=== PATIENT | male | born 1940 | race Caucasian/White ===

== ENCOUNTER 2016-10-02 10:37 | Emergency (ER) | payer OTHER ==
[~2016-10-02 10:37] MED LIST: ALEVE220 MG PO; ASAB PO; ASABAYER PO; ATV.5 PO; BETAMETH DIP0.05 % TOP; CALTRA600D PO; CELEBREX2 PO; CELEXA20 PO; CENTRUM PO; CORDARONE PO; COZ50 PO; DEXEDRINE15 MG OR; DEXEDRINE15 MG PO; FERROUS SULF325 M1 PO; FISH OIL1200 MG PO; FISH-EPA1000 MG PO; FLOMAX4 PO; GARLIC PO; GLUCCHONDR PO; L20 PO; L40 PO; LIPITOR80 MG PO; LUTEIN20 MG PO; MELA3 PO; MELATONIN5 M1 PO; MULTIVIT/MIN PO; MULTIVITAMI1 PO; PRIN2.5 PO; PROTONIX PO; SAW PALMETT1 PO; SAW PALMETT2 PO; TOPXL25 PO; VITC500 PO; ZAROX2.5B PO; ZOCOR40 PO
[2016-10-02 11:14] LABS: BASOPHILS 0.3 %; BASOPHILS ABSOLUTE 0.01 10/3/uL (0.0-0.16); EOSINOPHILS 1.8 %; EOSINOPHILS ABSOLUTE 0.07 10/3/uL (0.0-0.53); HEMATOCRIT 44.6 % (40.0-51.0); IMMATURE GRANULOCYTES 0.3 %; IMMATURE GRANULOCYTES ABSOLUTE 0.01 10/3/uL (0.0-0.11); LYMPHOCYTES 26.9 %; LYMPHOCYTES ABSOLUTE 1.04 10/3/uL (0.67-4.30); MEAN CORPUS HGB CONC 33.6 g/dL (32.0-36.0); MEAN CORPUSCULAR HEMOGLOB 29.1 pg (26.0-34.0); MEAN PLATELET VOLUME 10.8 fL (9.2-13.0); MONOCYTES 9.3 %; MONOCYTES ABSOLUTE 0.36 10/3/uL (0.21-1.20); NEUTROPHILS 61.4 %; NEUTROPHILS ABSOLUTE 2.38 10/3/uL (2.02-8.40); PLATELET COUNT 67 10/3/uL (150-400); RBC DISTRIBUTION WIDTH 14.4 % (12.0-16.0); RED CELL COUNT 5.15 10/6/uL (4.7-6.1); WHITE BLOOD CELLS 3.9 10/3/uL (4.5-10.5)
[2016-10-02 11:15] LABS: MANUAL DIFF NO %; MEAN CORPUSCULAR VOLUME 86.6 fL (80-100)
[2016-10-02 11:22] LABS: PARTIAL THROMBO TIME 36.3 SEC (22.5-37.2)
[2016-10-02 11:23] LABS: INTERNATIONAL NORMAL RATI 1.1 UNITS (-); PROTIME (NOT ORD) 13.8 SEC (12.0-14.5)
[2016-10-02 11:32] LABS: BUN (BLOOD UREA NITROGEN) 14 MG/DL (6-23); CALCIUM, SERUM 8.9 MG/DL (8.5-10.4); CHEST PAIN PROFILE TAT 0 Hrs 22 Mins; CHLORIDE, SERUM 102 MMOL/L (96-112); CO2 (CARBON DIOXIDE) 31 MMOL/L (24-34); CREATININE 1.08 MG/DL (0.70-1.30); GFR AFRICAN AMERICAN 76 ML/MIN (>=60); GFR NON AFRICAN AMERICAN 65 ML/MIN (>=60); GLUCOSE, SERUM 179 MG/DL (60-99); POTASSIUM, SERUM 3.9 MMOL/L (3.5-5.3); SODIUM, SERUM 137 MMOL/L (135-148); TROPONIN I <0.02 NG/ML (<0.05)
[2016-10-02 11:39] LABS: PLATELET ESTIMATE DEC (ADEQUATE); RBC MORPHOLOGY NORM (NORMAL)
== END 2016-10-02 16:09 | disposition home or self-care (01) ==
LOC: ER 10:37
PROVIDERS: Emergency Medicine
DX: I47.1 Supraventricular tachycardia (principal); I95.9 Hypotension, unspecified; I25.2 Old myocardial infarction; I50.9 Heart failure, unspecified; Z87.891 Personal history of nicotine dependence; Z79.82 Long term (current) use of aspirin; Z79.899 Other long term (current) drug therapy
CPT/HCPCS: 71010; 80048; 83735; 84484; 85025; 85610; 85730; 93005; 96365; 99285; J0282

== ENCOUNTER 2016-11-12 12:57 | Inpatient (IN) | payer OTHER ==
--- NOTE | ~2016-11-12 | HP ---
History And Physical [address] [place]. [address] NAME: LYNN THAKUR : 36 STATUS : ADM IN [facility]#: [id number] AGE: 76 ADM/REG DATE : 11/12/16 MR#: [id number] REPORT SERV DATE: 11/12/16 DICTATED BY: JULES MACHADO DATE: 11/12/16 REPORT STATUS : Draft TRANSCRIBED BY: IMANI DATE: 11/12/16 DATE OF ADMISSION: 11/12/2016 ADMISSION DIAGNOSIS: Atrial tachycardia. HISTORY OF PRESENT ILLNESS: Mr. Thakur is a 76-year-old male, who presented to [facility] ED for evaluation of dizziness. He has a cardiac history notable for nonischemic cardiomyopathy with prior biventricular pacemaker placement. He is also diagnosed with an atrial tachycardia last year and has been managed with various antiarrhythmic drugs, including amiodarone and more recently sotalol. He ran out of sotalol two weeks ago and over the weekend, he experienced progressive infrequent dizziness. He has not had any syncopal episodes and feels that when he leans forward slightly, his dizziness improves. However, due to the progression of these symptoms, he presented to the ED. In the ED, he has been noted to have paroxysmal tachycardia with heart rate ranging as high as 150. He was started on IV amiodarone and we were asked to evaluate the patient for further management. Upon my arrival, the patient was noted to have paroxysms of regular complex tachycardias, both paced and non-paced. His device was interrogated earlier this afternoon and findings suggest probable atrial tachycardia as the mechanism. He was noted to have additional nonsustained VT episodes as well as 16 SVT episodes since his last interrogation. He denies any chest discomfort and has no history of coronary artery disease. He states that he previously was on metoprolol, but this was discontinued the time he started this sotalol. He otherwise feels well and has no complaints other than tenderness in his breast bilaterally, which he states has started in the last few months. Of note, he is on Aldactone and this started in June 2016. PAST MEDICAL HISTORY: 1. Nonischemic cardiomyopathy. 2. Heart failure with reduced ejection fraction. 3. Mitral regurgitation, moderate to severe. 4. Left bundle branch block. 5. Bi-V ICD. 6. Hyperlipidemia. 7. Hypertension. 8. History of SVT/AT. 9. Chronic kidney disease. 10.History of orthostatic hypotension. SURGICAL HISTORY: Rotator cuff, bilateral knee surgery. FAMILY HISTORY: The patient's father had a stroke. The patient's mother has no history of heart disease. History And Physical [address] [place]. [address] NAME: LYNN THAKUR : 36 STATUS : ADM IN [facility]#: [id number] AGE: 76 ADM/REG DATE : 11/12/16 MR#: [id number] REPORT SERV DATE: 11/12/16 DICTATED BY: JULES MACHADO DATE: 11/12/16 REPORT STATUS : Draft TRANSCRIBED BY: IMANI DATE: 11/12/16 SOCIAL HISTORY: The patient is , has one child, son is at the bedside. He is a former pipe smoker, 40 years, but quit 10 years ago. He drinks couple of beers per day and has done so most of his life. He denies any illicit drug use. REVIEW OF SYSTEMS: Per HPI, otherwise negative. PHYSICAL EXAMINATION: VITAL SIGNS: Pulse ranging between 70 and 120, respiratory rate 16, blood pressure 105/70. GENERAL: Comfortable appearing male. Speech is nonlabored. HEENT: Sclerae are anicteric. Mucous membranes moist. NECK: Supple. CARDIOVASCULAR: PMI displaced laterally with regular S1 and S2. No murmur appreciated. PULMONARY: Diminished breath sounds bilaterally, but clear. No rales. No crackles. ABDOMEN: Soft, nondistended, nontender. EXTREMITIES: Warm. No edema. LABORATORY DATA: Reviewed. Potassium 4.5, creatinine 0.94, WBC 4.0, hemoglobin 14.4, platelets 61, troponin 0.03. EKG reviewed demonstrates ventricular paced rhythm at approximately 128. Underlying P waves are present, suspects sinus tach versus atrial tach. Telemetry demonstrates multiple runs of both sustained and nonsustained atrial tachycardia. IMPRESSIONS/RECOMMENDATIONS: 1. Supraventricular tachycardia: The patient's tachycardia is most likely related to an organized atrial tachycardia. Multiple rates are noted. He previously has been treated with sotalol and while this does appear to have been effective clinically, given the degree of infrequency, I have asked EP for their input and currently, there is a plan to transition him to oral amiodarone. We will also resume his beta-barry as his blood pressure tolerates. We will hold his other heart failure medications for now as his blood pressure has been labile at this admission. 2. Heart failure, nonischemic cardiomyopathy: Hold losartan. Restart Toprol and I will discontinue spironolactone in favor of eplerenone given likely gynecomastia is a side effect to this medication. 3. Thrombocytopenia: Etiology not apparent this time. We will repeat the studies and consider evaluation based on values. MK/IMANI Jules Machado MD / [id number] CC: James He MD [facility] And Physical [address] [address] NAME: LYNN THAKUR : 38 STATUS : ADM IN PAT#: [id number] AGE: 76 ADM/REG DATE : 11/12/16 MR#: [id number] REPORT SERV DATE: 11/12/16 DICTATED BY: JULES MACHADO DATE: 11/12/16 REPORT STATUS : Draft TRANSCRIBED BY: IMANI DATE: 11/12/16 Mauricio Miller M.D.
--- NOTE | ~2016-11-12 | CN ---
Consultation Report [facility] [address] [place]. [address] NAME: LYNN THAKUR : 36 STATUS : ADM IN PAT#: [id number] AGE: 76 ADM/REG DATE : 11/12/16 MR#: [id number] REPORT SERV DATE: 11/12/16 DICTATED BY: LILA CHARLTON DATE: 11/12/16 REPORT STATUS : Draft TRANSCRIBED BY: MODL DATE: 11/12/16 ELECTROPHYSIOLOGY CONSULTATION DATE OF CONSULTATION: 11/12/2016 REASON: Probable SVT. HISTORY OF PRESENT ILLNESS: Mr. Thakur is a 76-year-old gentleman with a known history of a nonischemic cardiomyopathy as well as a history of SVT, probably related to paroxysmal atrial tachycardia. He is status post the dual chamber biventricular defibrillator placed by Dr. Femi Truong. His ejection fraction prior to the biventricular device was 25%. His most recent echocardiogram showed an ejection fraction of 40%. The patient has had prior history of paroxysmal atrial tachycardia and has been treated with amiodarone, but in October of this year, on an emergency room visit, was changed to sotalol. The patient had a prescription for one month of sotalol, but then ran out and was not able to get back in with his physician. Over the last few days, he has been complaining of increasing palpitations as well as profound dizziness and lightheadedness. He presented to the emergency room in what appeared to be in atrial tachycardia at first with biventricular pacing, but at other times, there appear to be actual conduction of the atrial tachycardia rather than tracking. The patient was administered IV amiodarone, and he is now paroxysmal with the episodes. He is feeling comfortable. He is denying any chest pain or chest discomfort. He has had no problems with illness or poor p.o. intake over the last few days. Overall, apart from the PAT, has been feeling well and is not in any overt congestive heart failure. PAST MEDICAL HISTORY: 1. Notable for nonischemic cardiomyopathy, ejection fraction most recently at 40%, prior to that time at 25%. 2. History of a dual chamber biventricular ICD. 3. History of hyperlipidemia. 4. History of hypertension. CURRENT MEDICATIONS: Include, sotalol which the patient has run out of. He is also taking losartan, Lipitor, aspirin. He was taking amiodarone and Toprol, but these were discontinued when he was started on sotalol. FAMILY HISTORY: Noncontributory. Negative for premature coronary disease. SOCIAL HISTORY: Negative for tobacco or alcohol. REVIEW OF SYSTEMS: As noted above. All other systems reviewed and negative. PHYSICAL EXAMINATION: VITAL SIGNS: Blood pressure now 110/70, pulse has ranged between 70 and 120 as the patient Consultation Report [address] [address] NAME: LYNN THAKUR : 36 STATUS : ADM IN PAT#: [id number] AGE: 76 ADM/REG DATE : 11/12/16 MR#: [id number] REPORT SERV DATE: 11/12/16 DICTATED BY: LILA CHARLTON DATE: 11/12/16 REPORT STATUS : Draft TRANSCRIBED BY: IMANI DATE: 11/12/16 goes back and forth between what appears to be an atrial tachycardia and sinus rhythm. Respirations 16. GENERAL: Well developed, well nourished. HEENT: No icterus. Good dentition. NECK: Supple. No masses or thyromegaly LUNGS: Breathing comfortably. No rales or wheezes. COR: Normal S1, S2. No S3 or S4. No murmurs, clicks, rubs. No JVD ABD: Soft, nondistended, nontender, no hepatosplenomegaly. EXT: No clubbing, cyanosis or edema. Peripheral pulses 2+/=bilaterally. SKIN: Warm and dry. No visible lesions. MS: Chest wall without deformity, no obvious clavicular fractures. NEURO/PSYCH: Oriented X3. No anxiety or depression. STUDIES: EKG demonstrates what appears to be an atrial tachycardia with tracking of the P wave and biventricular pacing. No further interpretation. LABORATORY VALUES: Unremarkable. Electrolytes, BUN, and creatinine within normal limits. IMPRESSION: A gentleman with a known history of atrial tachycardia. We interrogated his dual-chamber biventricular ICD and demonstrated that in fact he does appear to have episodes of atrial tachycardia and sometimes these will conduct on intrinsically and sometimes they are tracked and the patient has biventricular pacing. He was started on IV amiodarone. His episodes appear to be decreasing. Some of this may have been precipitated by the fact that he ran out of his sotalol and was not able to get that refilled. I would recommend trying to transition him back to oral amiodarone. I would continue to load him with IV amiodarone as well as the oral amiodarone which we will start at 400 mg twice a day. I am also going to start Lopressor because of tenuous blood pressures. We will try to start this at a low dose of 12.5 mg p.o. q.6 hours. If the patient has stabilized by tomorrow, he likely could be discharged to home. Of note, at some point in the future we may wish to consider a more definitive approach for him such as electrophysiology study and possible radiofrequency ablation if the rhythm is felt to be amenable to ablation. JERMAINE/MODL Lila Charlton M.D. / [id number] CC: MD Mauricio Vallejo M.D.
[2016-11-12 12:43] LABS: BASOPHILS 0.2 %; BASOPHILS ABSOLUTE 0.01 10/3/uL (0.0-0.16); EOSINOPHILS 2.5 %; ER CBC TAT 0 Hrs 08 Mins; HEMATOCRIT 42.6 % (40.0-51.0); HEMOGLOBIN 14.4 g/dL (13.6-17.8); LYMPHOCYTES 26.9 %; LYMPHOCYTES ABSOLUTE 1.08 10/3/uL (0.67-4.30); MEAN CORPUS HGB CONC 33.8 g/dL (32.0-36.0); MEAN CORPUSCULAR HEMOGLOB 29.1 pg (26.0-34.0); MEAN CORPUSCULAR VOLUME 86.2 fL (80-100); MEAN PLATELET VOLUME 11.1 fL (9.2-13.0); MONOCYTES 12.9 %; MONOCYTES ABSOLUTE 0.52 10/3/uL (0.21-1.20); NEUTROPHILS 57.5 %; NEUTROPHILS ABSOLUTE 2.31 10/3/uL (2.02-8.40); PLATELET COUNT 61 10/3/uL (150-400); RBC DISTRIBUTION WIDTH 14.1 % (12.0-16.0); RED CELL COUNT 4.94 10/6/uL (4.7-6.1)
[2016-11-12 12:44] LABS: MANUAL DIFF NO %
[2016-11-12 12:54] LABS: INTERNATIONAL NORMAL RATI 1.1 UNITS (-); PARTIAL THROMBO TIME 35.4 SEC (22.5-37.2); PROTIME (NOT ORD) 14.2 SEC (12.0-14.5)
[2016-11-12 13:01] LABS: BUN (BLOOD UREA NITROGEN) 18 MG/DL (6-23); CHEST PAIN PROFILE TAT 0 Hrs 26 Mins; CHLORIDE, SERUM 109 MMOL/L (96-112); CO2 (CARBON DIOXIDE) 26 MMOL/L (24-34); CREATININE 0.94 MG/DL (0.70-1.30); GFR AFRICAN AMERICAN 90 ML/MIN (>=60); GFR NON AFRICAN AMERICAN 77 ML/MIN (>=60); GLUCOSE, SERUM 103 MG/DL (60-99); POTASSIUM, SERUM 4.5 MMOL/L (3.5-5.3); SODIUM, SERUM 141 MMOL/L (135-148); TROPONIN I 0.03 NG/ML (<0.05)
[2016-11-12 13:33] LABS: ASCORBIC ACID (UR NOT ORDER) 40 (NEG); BILIRUBIN, URINE NEGATIVE (NEG); ER URINALYSIS TAT 0 Hrs 11 Mins; KETONE, URINE NEGATIVE (NEG); LEUKOCYTE ESTERASE(NOT OR NEG (NEG); NITRITE (URINE) NEG (NEG); WBC (NOT ORDERED) (RFLEX) < 1 (0-5)
[2016-11-12] MEDS ORDERED: CELEXA20 PO ×2 (15:50→17:18)
[2016-11-12] MEDS ORDERED: VITC500 PO ×2 (15:51→17:18)
[2016-11-12] MEDS ORDERED: MULTIVITAMI1 PO ×2 (15:52→17:19)
[2016-11-12] MEDS ORDERED: FISH-EPA1000 MG PO ×2 (15:53→17:19)
[2016-11-12] MEDS ORDERED: FLOMAX4 PO ×2 (15:54→17:19)
[2016-11-12] MEDS ORDERED: Citalopram (15:59)
[2016-11-12] MEDS ORDERED: L40 PO (16:00)
[2016-11-12] MEDS ORDERED: Ascorbic Acid (16:01)
[2016-11-12] MEDS ORDERED: MULTIVITAMIN (16:01)
[2016-11-12] MEDS ORDERED: Omega 3 (16:02)
[2016-11-12] MEDS ORDERED: Tamsulosin (16:03)
[2016-11-12] MEDS ORDERED: Celebrex (16:04)
[2016-11-12] MEDS ORDERED: Atorvastatin (16:05)
[2016-11-12] MEDS ORDERED: AMBIEN (16:05)
[2016-11-12] MEDS ORDERED: LOSARTAN (16:06)
[2016-11-12] MEDS ORDERED: ASPIRIN (16:07)
[2016-11-12] MEDS ORDERED: ALDACTONE (16:07)
[2016-11-12] MEDS ORDERED: FUROSEMIDE ×2 (16:08→16:09)
[2016-11-12] MEDS ORDERED: *UNABLE1 (16:11)
[2016-11-12] MEDS ORDERED: LIPITOR80 MG PO (17:19)
[2016-11-12] MEDS ORDERED: COZ50 PO (17:20)
[2016-11-12] MEDS ORDERED: HALF81 PO (17:20)
[2016-11-12] MEDS ORDERED: ZAROX2.5B PO (17:21)
[2016-11-12] MEDS ORDERED: L20 PO (17:21)
[2016-11-12] MEDS ORDERED: BETAP120 PO (17:22)
[2016-11-12 20:15] LABS: ALBUMIN 3.6 G/DL (3.5-5.0); DIRECT BILIRUBIN 0.1 MG/DL (0.0-0.4); FREE T4 1.01 NG/DL (0.76-1.46); INDIRECT BILIRUBIN(NOT ORDER) 0.6 MG/DL (0.1-0.9); TOTAL BILIRUBIN 0.7 MG/DL (0-1.2); TOTAL PROTEIN 7.1 G/DL (6.0-8.5); TROPONIN I 0.02 NG/ML (<0.05); ULTRASENSITIVE TSH 1.28 MCIU/ML (0.358-3.740)
[2016-11-13 07:02] LABS: BASOPHILS 0.2 %; BASOPHILS ABSOLUTE 0.01 10/3/uL (0.0-0.16); EOSINOPHILS 2.3 %; HEMATOCRIT 39.2 % (40.0-51.0); HEMOGLOBIN 13.4 g/dL (13.6-17.8); IMMATURE GRANULOCYTES 0.2 %; IMMATURE GRANULOCYTES ABSOLUTE 0.01 10/3/uL (0.0-0.11); LYMPHOCYTES 24.8 %; LYMPHOCYTES ABSOLUTE 1.09 10/3/uL (0.67-4.30); MEAN CORPUS HGB CONC 34.2 g/dL (32.0-36.0); MEAN CORPUSCULAR HEMOGLOB 29.4 pg (26.0-34.0); MEAN PLATELET VOLUME 11.3 fL (9.2-13.0); MONOCYTES 10.5 %; MONOCYTES ABSOLUTE 0.46 10/3/uL (0.21-1.20); NEUTROPHILS ABSOLUTE 2.72 10/3/uL (2.02-8.40); PLATELET COUNT 68 10/3/uL (150-400); RBC DISTRIBUTION WIDTH 14.3 % (12.0-16.0); RED CELL COUNT 4.56 10/6/uL (4.7-6.1); WHITE BLOOD CELLS 4.4 10/3/uL (4.5-10.5)
[2016-11-13 07:05] LABS: MANUAL DIFF NO %
[2016-11-13 07:19] LABS: BUN (BLOOD UREA NITROGEN) 16 MG/DL (6-23); CALCIUM, SERUM 8.6 MG/DL (8.5-10.4); CHLORIDE, SERUM 107 MMOL/L (96-112); CO2 (CARBON DIOXIDE) 25 MMOL/L (24-34); CREATININE 0.86 MG/DL (0.70-1.30); GFR AFRICAN AMERICAN 96 ML/MIN (>=60); GFR NON AFRICAN AMERICAN 83 ML/MIN (>=60); GLUCOSE, SERUM 113 MG/DL (60-99); POTASSIUM, SERUM 4.3 MMOL/L (3.5-5.3); SODIUM, SERUM 139 MMOL/L (135-148)
[2016-11-13 07:23] LABS: BURR CELLS 1+ (3-10/OIF) (0-2/OIF); PLATELET ESTIMATE DEC (ADEQUATE); POIKILOCYTOSIS 1+ (5-10/OIF) (0-5/OIF)
[2016-11-13] MEDS ORDERED: L20 PO (10:48)
[2016-11-13] MEDS ORDERED: IRON SUPPLEMENT PO (10:50)
[2016-11-13] MEDS ORDERED: AMB10 PO (10:50)
[2016-11-13] MEDS ORDERED: SPIRO25 PO (10:54)
[2016-11-13] MEDS ORDERED: DEXEDRINE15 MG PO (10:57)
[2016-11-13] MEDS ORDERED: CORDARONE PO ×2 (14:45→14:46)
[2016-11-13] MEDS ORDERED: LOP25 PO (14:47)
== END 2016-11-13 16:15 | disposition home or self-care (01) | DRG 309 ==
LOC: ER 12:57 → 6NO 16:24
PROVIDERS: Emergency Medicine; Internal Medicine Cardiovascular Disease; Specialist
PROC: 4B02XTZ Measurement of Cardiac Defibrillator, External Approach (ICD-10-PCS; principal; 2016-11-12)
DX: I47.1 Supraventricular tachycardia (principal); I50.22 Chronic systolic (congestive) heart failure; I42.9 Cardiomyopathy, unspecified; I13.0 Hypertensive heart and chronic kidney disease with heart failure and stage 1 through stage 4 chronic kidney disease, or unspecified chronic kidney disease; N18.9 Chronic kidney disease, unspecified; E78.5 Hyperlipidemia, unspecified; I95.1 Orthostatic hypotension; I44.7 Left bundle-branch block, unspecified; Z79.82 Long term (current) use of aspirin; Z95.810 Presence of automatic (implantable) cardiac defibrillator; Z87.891 Personal history of nicotine dependence
CPT/HCPCS: 71020; 80048; 80076; 81001; 83735; 83880; 84439; 84443; 84484; 85025; 85610; 85730; 93005; 96374; 99285; A9270-GY; J0282